=== PATIENT | male | born 2000 ===

== ENCOUNTER 2021-04-28 17:47 | Emergency (ER) | payer BC ==
[~2021-04-28] VITALS: Ht 177.8 cm; Wt 59.0 kg
[2021-04-28] MEDS ORDERED: ONDANSETRON HCL 4 MG/2 ML VIAL IV ONE (18:15)
[2021-04-28] MEDS ORDERED: TETANUS-DIPTH-ACEL PERTUSSIS 0.5ML SYR Tdap IM ONE (18:15)
[2021-04-28] MEDS ORDERED: ceFAZolin 1GM/50ML 100 ML IV ONE (18:15)
[2021-04-28] MEDS ORDERED: MORPHINE SULFATE 4 MG/ML SYR/VIAL IV ONE (18:15)
[2021-04-28] MEDS ORDERED: MORPHINE SULFATE 4 MG/ML SYR/VIAL ONE (18:17)
[2021-04-28] MEDS ORDERED: ONDANSETRON HCL 4 MG/2 ML VIAL ONE (18:17)
[2021-04-28] MEDS ORDERED: fentaNYL CITRATE 100 MCG/2 ML VL IV ONE (20:00)
[2021-04-28 20:47] LABS: Basophils # (auto) 0 10 ^3/uL (0-0.2); Basophils % (auto) 0.2 % (0.0-2.0); Eosinophils # (auto) 0.1 10 ^3/uL (0-0.8); Eosinophils % (auto) 0.4 % (0.0-7.0); Hematocrit 48.1 % (41.0-53.0); Hemoglobin 16.1 g/dL (13.5-17.5); Lymphocytes # (auto) 0.7 10 ^3/uL (0.4-5.4); Lymphocytes % (auto) 3.7 % (10.0-50.0); Mean Corpuscular Hemoglobin 29.8 pg (28.0-32.0); Mean Corpuscular Hgb Conc. 33.5 g/dL (32.0-36.0); Mean Corpuscular Volume 88.8 fL (80.0-100.0); Monocytes # (auto) 1.1 10 ^3/uL (0-1.3); Monocytes % (auto) 6.2 % (0.0-12.0); Neutrophils # (auto) 16.4 10 ^3/uL (1.6-8.6); Neutrophils % (auto) 89.5 % (37.0-80.0); Nucleated Red Blood Cells % 0.1 %; Red Blood Cells 5.42 10^6/uL (4.5-5.90); Red Cell Distribution Width 13.2 % (11.8-14.3); White Blood Cell 18.3 10^3/uL (4.4-10.8)
[2021-04-28 21:03] LABS: Albumin 4.4 g/dL (3.4-5.0); BUN/Creatinine Ratio 12.5; Potassium 3.9 mmol/L (3.5-5.1)
[2021-04-28 21:06] VITALS: BP 152/91
[2021-04-28 21:06] LABS: Bilirubin, Total 0.7 mg/dL (0.2-1.0); Total Protein 7.6 g/dL (6.4-8.2)
[2021-04-28 21:15] LABS: INR 1.03 (0.9-1.15); Partial Thromboplastin Time 21.4 sec (23.6-33.0)
== END 2021-04-28 21:20 | disposition short-term general hospital (02) ==
LOC: ER 17:47
DX: S52.92XB Unspecified fracture of left forearm, initial encounter for open fracture type I or II (principal); S52.292B Other fracture of shaft of left ulna, initial encounter for open fracture type I or II; F17.210 Nicotine dependence, cigarettes, uncomplicated; Z20.822 Contact with and (suspected) exposure to COVID-19; V28.4XXA Motorcycle driver injured in noncollision transport accident in traffic accident, initial encounter; Y93.89 Activity, other specified; Y92.89 Other specified places as the place of occurrence of the external cause; Y99.8 Other external cause status
CPT/HCPCS: 29125; 36415; 70450; 71045; 72125; 72170; 73090; 80053; 85025; 85610; 85730; 87426; 90471; 90715; 96365; 96366; 96375; 99285; J0690; J2270; J2405; J3010